=== PATIENT | female | born 1975 | race Caucasian/White ===

== ENCOUNTER → 2016-07-07 | Day surgery (SDC) | payer MEDICARE, MEDICAID ==
[2016-03-06 19:47] VITALS: BMI 40.2
[~2016-07-07] MED LIST: Clindamycin 900 mg/D5W 50 ml 900 MG/50 ML IVB IV ONE; FENTANYL 100 MCG/2 ML VIAL IV PRN; FENTANYL 100 MCG/2 ML VIAL ONE; FENTANYL 250 MCG/5 ML VIAL IV ONE; HEPARIN 500 UNITS/5 ML (100 UNITS/ML) SYR FLUSH ONE; HYDROmorphone 1 MG INJECTION IV PRN; HYDROmorphone 1 MG INJECTION ONE; LABETALOL 20 MG/4 ML SYRINGE IV PRN; LIDOCAINE 0.5% 50 ML SDV INF ONE; MEPERIDINE 25 MG/ML TUBEX IV PRN; MIDAZOLAM 2 MG/2 ML VIAL IV ONE; ONDANSETRON HCL 4 MG ODT TAB PO PRN; ONDANSETRON HCL 4 MG/2 ML VIAL IV PRN; OXYCODONE HCL 5 MG TABLET ONE; PROMETHAZINE 25 MG/ML VIAL IV PRN; hydrALAZINE 20 MG/ML VIAL IV PRN
--- NOTE | 2016-07-07 09:37 | SC.ANESPOS ---
Post-Anesthesia Note LOC: [facility] [facility] Calling Post-Anesthesia Assessment: Awake, Returned to Baseline, Hemodynamically Stable , Pain Control Adequate Phase I & II Recovery Complete: Yes Apparent Anesthesia Complication: No : N - Vital Signs Blood Pressure: 121/84 Pulse: 87 Resp Rate: 18 O2 Sat: 100 Temp: 97.3 F
--- NOTE | 2016-07-07 09:51 | HIM.ANES ---
Anesthesia Evaluation & Plan Diagnoses: CARPAL TUNNEL SYNDROME, LEFT UPPER LIMB (07/07/16) Consented Procedure: LEFT CARPAL TUNNEL RELEASE - Focused Review of Systems Cardiac History: Yes: Hx Hypertension, Hx Angina (NITROGLYCERIN PRN), Hx Heart Attack (2011), Hx Cardiac Catheterization (2012), Hx Pacemaker (2009, REPLACED 01/2016), Hx Heart Murmur (MITRAL VALVE PROLAPSE), Hx Afib/Aflutter (A-FIB), Hx Cardiac Disorders, Hx Abnormal Cholesterol/Hyperlipidemia, Hx Congestive Heart Failure, Hx Deep Vein Thrombosis (2007 BROKE OFF FROM LEG AND WENT TO BRAIN ) HEENT: No: Other HEENT Problems Gastrointestinal: No: Hx Gastroesophageal Reflux Disease, Hx Gastrointestinal Disorders, Hx Obstructive Bowel Neurological/Musculoskeletal: Yes: HX Cerebrovascular Accident (2009 RT SIDE CVA DUE TO DVT WITH LEFT SIDED WEAKNESS), Hx Transient Ischemic Attacks (TIA), Hx Migraine, Hx Back Pain, Hx Numbness, Tingling, Weakness in Arms & Legs, Hx Neurological Disorders Other Neurological Problems: NEUROPATHY-BILATERAL LEGS Psychological: Yes Hx Anxiety, Yes Hx Depression, Yes Hx Mental/Emotional Disorders HX Other Psyco/Soc Problems: INSOMNIA, PTSD Blood/Autoimmune: No: Hx AIDS, Hx Hepatitis (type) Smoking Status: Never smoker Hx Stress Test (date): Yes (11/10) Hx Chest Xray (date): Yes (01/24/2016 no pneumothorax) Pacemaker make/model/last interrogation: 05/2016 interrogation medtronic dual chamber Surgical History: Yes: Appendectomy (1998), Knee (RT KNEE LIGAMENT REPAIR 2002) Other Surgical History: 1998 PARTIAL HYSTERECTOMY 2009 TOTAL HYSTERECTOMY, D&C - Focused Physical Exam NPO since: 07/06/16 2100 Mallampati: Class IV Thyromental Distance: Greater than 3 Neck: Full Range of Motion Dental: Removable Dental Work Cardiovascular/Chest: Irregular Respiratory: Decreased breath sounds Any problems with anesthesia, including nausea and vomiting?: No Any relatives with a history of Malignant Hyperthermia?: No Beta Margarita given (if appropriate): N/A Does the patient have a history of Motion Sickness-: No Other: Allergies Allergy/AdvReac Type Severity Reaction Status Date / Time aspirin Allergy Anaphylaxis Verified 07/07/16 09:40 * cephalexin monohydrate Allergy Anaphylaxis Verified 07/06/16 14:19 [From Keflex] * ibuprofen Allergy Anaphylaxis Verified 07/06/16 14:19 * naproxen sodium [From Aleve] Allergy Anaphylaxis Verified 07/06/16 14:19 * nitrofurantoin Allergy Anaphylaxis Verified 07/06/16 14:19 [From Macrobid] * nitrofurantoin Allergy Anaphylaxis Verified 07/06/16 14:19 macrocrystalline * [From Macrobid] Home Medications Medication Instructions Recorded Last Taken Type Amitriptyline HCl [Elavil] 10 mg PO HS 10/18/15 07/04/16 22:00 History Hydralazine HCl 25 mg PO HS 10/18/15 07/05/16 22:00 History Nitroglycerin [Nitroquick] 0.4 mg SL [id number] PRN 10/18/15 03/05/16 History Ziprasidone HCl 20 mg PO BID 10/18/15 07/07/16 06:30 History Lamotrigine [Lamictal] 150 mg PO BID 03/06/16 07/07/16 07:00 History Atorvastatin Calcium [Lipitor] 20 mg PO DAILY 05/13/16 07/06/16 22:00 History Cyclobenzaprine HCl [Flexeril] 10 mg PO TID 05/13/16 07/06/16 22:00 History Diltiazem HCl [Cardizem] 60 mg PO DAILY 05/13/16 07/07/16 07:00 History Dipyridamole/Aspirin 200/25 1 cap PO BID 05/13/16 06/30/16 History [Aggrenox] Hydrocodone Bit/Acetaminophen 1 each PO BID PRN 05/13/16 07/06/16 22:00 History [[place] 10-325 Tablet] TOPIRAMATE (Anticonvulsant) 100 mg PO BID 05/13/16 07/07/16 07:00 History [Topamax] Zolpidem Tartrate [Ambien] 10 mg PO HS PRN 05/13/16 07/05/16 22:00 History Triamterene/Hydrochlorothiazid 1 each PO DAILY 05/15/16 07/07/16 07:00 History [Triamterene-Hctz 37.5-25 mg Tb] Height and Weight Patient's height 5 ft 2 in Patient's weight 290 lb BMI 40.2 Vital Signs Temperature 97.3 F L 07/07/16 09:37 Pulse Rate 87 07/07/16 09:37 Respiratory Rate 18 07/07/16 09:37 Blood Pressure 121/84 07/07/16 09:37 Pulse Oxygen Saturation 100 07/07/16 09:37 - Anesthetic Plan Anesthesia Type: MAC ASA Class: 4 -: I have examined this patient and reviewed the medical record. The patient has been assessed prior to anesthesia. Risks and benefits of anesthesia and anesthetic technique options have been discussed and all questions answered. The patient accepts the risk and desires me to proceed with the planned anesthetic.
--- NOTE | 2016-07-07 11:53 | HIMOPRPT ---
DATE OF PROCEDURE: 07/07/16 PREOPERATIVE DIAGNOSIS: Carpal tunnel syndrome, left hand. POSTOPERATIVE DIAGNOSIS: Carpal tunnel syndrome, left hand. OPERATION: Carpal tunnel release, left hand. SURGEON: Ranjeet Bynum MD. MANAGING CONSULTANT: KIRA Pitts ANESTHESIA: Bernardino block. DRAINS: None. COMPLICATIONS: None. BLOOD LOSS: None. DISPOSITION: Stable to recovery. PROCEDURE IN DETAIL: The patient was taken back to the surgical suite, where a forearm Bernardino block was placed on the left arm. The left hand and forearm was then prepped and draped in the standard sterile fashion and secured with a lead hand rader. A 3-cm longitudinal incision was made in the thenar crease of the palm. The incision was carried down sharply through the skin and subcutaneous tissues, which were undermined proximally across the wrist crease. An Alms self- retaining retractor was placed. A Crile right angle retractor was placed. The palmar fascia was incised in line with skin incision. The transverse carpal ligament was identified along with superficial palmar arch, which was protected. The contents of the carpal tunnel were dissected from the undersurface of the transverse carpal ligament with a hemostat and a Nieves elevator. The distal half of the transverse carpal ligament was released with a 15 blade. The median nerve was initially inspected, then the proximal half of the transverse carpal ligament was released with a carpal tunnel knife. A complete release was confirmed. There was no gross pathology noted within the carpal tunnel. The motor branch of the median nerve was identified and noted to take a transligamentous course radially. The wound was irrigated with sterile saline solution and the skin was closed with simple interrupted 4-0 Prolene sutures. A sterile bulky hand dressing was applied. The tourniquet was deflated. The patient was taken to the recovery room in stable condition. The patient tolerated the procedure well without immediate complications.
[2016-07-07 13:23] VITALS: TEMP 97.3
[2016-07-07 13:39] VITALS: PULSE 87
[2016-07-07 15:07] VITALS: BP 121/84
== END ==
LOC: SDC 08:57
PROVIDERS: ATTEND Orthopaedic Surgery
PROC: 01N50ZZ Release Median Nerve, Open Approach (ICD-10-PCS; principal; 2016-07-07 10:35)
DX: G56.02 Carpal tunnel syndrome, left upper limb (principal); I10 Essential (primary) hypertension; I50.9 Heart failure, unspecified; I25.2 Old myocardial infarction; I48.91 Unspecified atrial fibrillation; M32.9 Systemic lupus erythematosus, unspecified; E78.5 Hyperlipidemia, unspecified; E66.9 Obesity, unspecified; G43.909 Migraine, unspecified, not intractable, without status migrainosus; F41.9 Anxiety disorder, unspecified; F32.9 Major depressive disorder, single episode, unspecified; G47.00 Insomnia, unspecified; F43.10 Post-traumatic stress disorder, unspecified; Z86.73 Personal history of transient ischemic attack (TIA), and cerebral infarction without residual deficits; Z95.0 Presence of cardiac pacemaker; Z79.899 Other long term (current) drug therapy; Z68.43 Body mass index [BMI] 50.0-59.9, adult
CPT/HCPCS: 64721; 82962; A9270; J1170; J1642; J2550; J3010; J3490; J2250; S0077

== ENCOUNTER 2016-07-21 16:03 | Inpatient (IN) | payer MEDICARE, MEDICAID ==
--- NOTE | 2016-07-21 16:21 | DIRPT ---
CLINICAL DATA: Slurred speech. Stroke like symptoms. Code stroke. EXAM: CT HEAD WITHOUT CONTRAST TECHNIQUE: Contiguous axial images were obtained from the base of the skull through the vertex without intravenous contrast. COMPARISON: CT head without contrast 12/04/2015 FINDINGS: The basal ganglia are intact. The lentiform nucleus is normal. No acute or focal cortical lesions are present. Insert pass ventricles insert pass fluid The paranasal sinuses and mastoid air cells are clear. The calvarium is intact. No significant extracranial soft tissue lesion is present. The globes and orbits are within normal limits. IMPRESSION: Negative CT of the head. Electronically Signed By: Franki Holland M.D. On: 07/21/2016 16:19
--- NOTE | 2016-07-21 16:59 | EDPRACDOC ---
- General Stated Complaint: STROKE-LIKE SYMPTOMS Time Seen by Provider: 07/21/16 16:12 Information Source: Patient Mode of Arrival:: Car Allergies/Adverse Reactions: Allergies Allergy/AdvReac Type Severity Reaction Status Date / Time aspirin Allergy Anaphylaxis Verified 07/07/16 09:40 * cephalexin monohydrate Allergy Anaphylaxis Verified 07/06/16 14:19 [From Keflex] * ibuprofen Allergy Anaphylaxis Verified 07/06/16 14:19 * naproxen sodium [From Aleve] Allergy Anaphylaxis Verified 07/06/16 14:19 * nitrofurantoin Allergy Anaphylaxis Verified 07/06/16 14:19 [From Macrobid] * nitrofurantoin Allergy Anaphylaxis Verified 07/06/16 14:19 macrocrystalline * [From Wiren Boardbid] Home Medications: Ambulatory Orders Amitriptyline HCl [Elavil] 10 mg PO HS 10/18/15 Hydralazine HCl 25 mg PO HS 10/18/15 Nitroglycerin [Nitroquick] 0.4 mg SL [id number] PRN 10/18/15 Lamotrigine [Lamictal] 150 mg PO BID 03/06/16 Atorvastatin Calcium [Lipitor] 20 mg PO QHS 05/13/16 Cyclobenzaprine HCl [Flexeril] 10 mg PO TID 05/13/16 Diltiazem HCl [Cardizem] 60 mg PO DAILY 05/13/16 Hydrocodone Bit/Acetaminophen [[place] 10-325 Tablet] 0.5 tab PO BID PRN 05/13/16 Zolpidem Tartrate [Ambien] 10 mg PO HS PRN 05/13/16 Triamterene/Hydrochlorothiazid [Triamterene-Hctz 37.5-25 mg Tb] 1 tab PO DAILY 05/15/16 Apixaban [Eliquis] 5 mg PO BID 07/21/16 Levetiracetam [Keppra] 500 mg PO BID 07/21/16 - History of Present Illness Exact Onset of Symptoms: Known Onset: 1 HR [employer] Symptoms Started: Reports: Suddenly Symptoms: Reports: Difficulty walking, Other motor weakness, Facial droop Symptoms Description: Constant Symptom Severity: Reports: Unable to performs ADL's Weakness: Left: Arm, Leg, Face Associated Symptoms: Reports: Occasional Headache HPI: PT HAD A H/A YESTERDAY AND HER BP WAS HIGH. SHE SAID THAT SHE DEVELOPED LEFT SIDED FACIAL WEAKNESS AND LEFT ARM AND LEG WEAKNESS ABOUT 1 HR [employer]. THE PT SAID THAT SHE HAS HAD STROKES IN THE PAST. ED Past Medical History - Patient Medical History Neurological History: Reports: Cerebrovascular Accident (2009 RT SIDE CVA DUE TO DVT WITH LEFT SIDED WEAKNESS) Cardiac History: Reports: Coronary Artery Disease, Atrial Fibrillation, Hypertension, Congestive Heart Failure, Heart Attack (2011), Cardiac Catheterization (2012), Pacemaker (2008, REPLACED 01/2016), Valvular Heart Disease (MVR) GI/ History: Musculoskeletal History: Reports: Arthritis (OSTEO) Psychological History: Reports: Depression, Anxiety Systemic History: Reports: Cancer (OVARIAN) Surgical History: Reports: Hysterectomy, Cardiac Catheterization (2012), Other ( PORT PLACEMENT, PACEMAKER) - Family Medical History Reports: Hypertension (MOTHER), Cancer (GF COLON CA), Stroke (MOTHER), Cardiac Disorders (MOTHER, SISTER GF). Denies: Diabetes - Social Medical History Smoking Status: Never smoker ETOH: None Substance Abuse: None Lives In: Home EDM Review of Systems - Review of Systems ROS Negative Except as Marked: Yes All systems reviewed and were negative except as marked Neurological: Gait Difficulty, Weakness - Physical Exam Constitutional: Alert (Awake), Distress Oriented to: Time, Person, Place Last recorded Vital Signs: Last Vital Signs Temp Pulse 96 07/21/16 16:52 Resp 18 07/21/16 16:52 BP 151/99 07/21/16 16:52 Pulse Ox 99 07/21/16 16:52 Oxygen Pulse Oxygen Saturation 99 O2 Device Oxygen Flow Rate Fraction of Inspired Oxygen ( FIO2) - HEENT Head: Normal ( normocephalic) Eye Exam: Normal (PERRL, EOMI, Sclera white) Oropharynx: Normal (Pharynx:Moist without exudate,Gums-no swelling) ENT EAC: Normal TMJ: Normal Nose: No Symptoms Reported (septum midline) Neck: Normal (FROM, trachea at midline) - Respiratory/Cardiovascular Respiratory: Normal - CTA (BBS clear to auscultation without adventitious sounds ) Cardiovascular: Normal (RRR without murmur, gallop or rub) - GI Auscultation: Normal (NABS) Palpation: Normal (Soft,No rebound or guarding, non distended) Tenderness: Non tender Milan's Sign: Negative - Musculoskeletal Back: Normal (Non-Tender) Extremities: Normal (Normal tone, Pulses 2+ No cyanosis or edema, FROM) - Integumentary Skin: Normal, Warm, Dry Lymphatics: Normal (no adenopathy) - Neurologic Memory Impaired: Normal Motor Function: Abnormal (LEFT FACIAL DROOP, LEFT ARM AND LEG WEAKNESS) Cranial Nerve: Other (LEFT FACIAL DROOP) Cerebellar: Normal Mood Description: Normal Thought: Coherent Perception: Normal NIH Stroke Scale Initial Evaluation Level of Consciousness: Alert LOC- Question: Answers Both Correctly LOC Commands: Both Task Correctly Best Gaze: Normal Visual: No Visual Loss Facial Palsy: Complete Paralysis Motor Arm LEFT: Drift Motor Arm RIGHT: No Drift Motor Leg LEFT: Some Effort Against Ethel Motor Leg RIGHT: No Drift Limb Ataxia: Absent Sensory: Mild to Mod Sensory Loss Best Language: No Aphasia Dysarthria: Normal Extinction and Inattention: No Abnormality (Neglect) Score: 7out of42 - Action Has patient received an Antithrombotic in the last 24hrs?: No Was an Antithrombotic given in the ED?: No Antithrombotic Contraindicated: Other *free text (PT ON ELIQUIS) - Results 07/21/16 16:50 07/21/16 16:50 - EKG EKG #1 EKG Time: 16:49 -: Yes EKG interpreted by me Rate: bpm: 94 [place]: Normal Rhythm: NSR Block: None Hypertrophy: None ST: Normal Comparison: 03/06/16 - Diagnostic Imaging Chest Image interpreted by: Radiologist No acute disease. Head Image interpreted by: Radiologist Negative CT of the head. - Additional Information PT ABLE TO AMBULATE TO THE BATHROOM W/O ASSISTANCE - Departure Yes I personally saw and evaluated the patient. Disposition: Admit IP To This Hospital Condition: Fair Final Diagnosis: CVA - cerebrovascular accident due to cerebral artery occlusion Education/Counseling Given To: Patient Education/Counseling Given Regarding: Diagnosis, Treatment Referrals: Darlin Vegas PA [Primary Care Provider] - One Week Decision to Admit Time: 18:00 Decision to admit date: 07/21/16 Decision to admit: from ED - Physician Consulted Hospitalist Provider Called: Sudeep Batista
--- NOTE | 2016-07-21 17:02 | DIRPT ---
CLINICAL DATA: Headache, nausea, slurred speech and left-sided paralysis for 1 hour. Initial encounter. EXAM: PORTABLE CHEST 1 VIEW COMPARISON: Single view of the chest 03/06/2016. PA and lateral chest 01/25/2016. FINDINGS: Pacing device and Port-A-Cath remain in place. The lungs are clear. Heart size is normal. There is no pneumothorax or pleural effusion. Mild asymmetric elevation of the right hemidiaphragm relative to the left is unchanged. IMPRESSION: No acute disease. Electronically Signed By: Hubert Calderon M.D. On: 07/21/2016 16:59
[2016-07-21 17:08] VITALS: BMI 52.1
[2016-07-21 17:09] LABS: AUTOMATED BASOPHIL 1.3 % (0-2); AUTOMATED EOSINOPHIL 1.2 % (0-5); AUTOMATED NEUTROPHIL 48.5 % (45-76); MPV 7.9 fL (7.4-10.4)
[2016-07-21 17:15] LABS: LEUKOCYTES/URINE NEG (NEGATIVE); NITRITE/URINE NEG (NEGATIVE); RBC/URINE 0-2 (0-5); URINE OCCULT BLOOD NEG (NEG/TRACE); WBC/URINE 0-2 (0-5)
[2016-07-21 17:22] LABS: BLOOD UREA NITROGEN 6 MG/DL (7-17); CALC CORRECTED 9.1 MG/DL (8.4-10.2); CALCULATED OSMOLALITY 265 MOs/Kg (270-290); CHLORIDE 105 mEq/L (98-107); GLUCOSE 85 MG/DL (70-99); SODIUM LEVEL 139 mEq/L (137-146); TOTAL PROTEIN 7.2 G/DL (6.3-8.2)
[2016-07-21 17:36] LABS: PT-INR 1.1
[2016-07-21] MEDS ORDERED: ONDANSETRON HCL 4 MG/2 ML VIAL IV ONE (17:37)
[2016-07-21] MEDS ORDERED: MORPHINE 4 MG/ML INJECTION IV ONE ×2 (17:37→20:14)
[2016-07-21] MEDS ORDERED: NITROGLYCERINE 0.4 MG TAB SL PRN (18:30)
[2016-07-21] MEDS ORDERED: ACETAMINOPHEN 325 MG/TAB TABLET PO PRN (18:31)
[2016-07-21] MEDS ORDERED: ONDANSETRON HCL 4 MG/2 ML VIAL IV PRN (18:31)
--- NOTE | 2016-07-21 18:35 | HISTPHYS ---
- Chief Complaint Left facial droop, left-sided weakness - History of Present Illness This is a pleasant 40-year-old female with a history of prior CVA who was being admitted to the [facility] due to concerns for recurrent cerebrovascular accident. The patient had a CVA several years ago, consisting of left arm and leg tingling and weakness as well as left facial droop, this thankfully resolved completely and the patient has since then been on Eliquis anticoagulation for her history of stroke, in addition to her history of atrial fibrillation. She tells me that 2 weeks ago, her Eliquis was stopped briefly for a left carpal tunnel surgery which went very well. She was in her usual state of health until yesterday when she noticed that her blood pressure was quite high but she was otherwise normal. The this afternoon, about 1 hour prior to her presentation to the emergency department, she developed a right- sided headache, followed by left 5th sided facial tingling and droop, and then left arm and leg numbness and tingling with weakness, she also noticed that she was stumbling when she tried to walk. She denies any vision changes, seizures, nausea, vomiting, fevers, chills, chest pain, abdominal pain, diarrhea or nausea , sick contacts or recent travel. No other changes to her medications. No therapies tried prior to arrival. Patient was not given tPA as she is already on Eliquis anticoagulation. - Medical History Cardiac History: Reports: Coronary Artery Disease, Atrial Fibrillation, Hypertension, Congestive Heart Failure, Heart Attack (2011), Cardiac Catheterization (2012), Pacemaker (2008, REPLACED 01/2016), Valvular Heart Disease (MVR) GI/ History: Musculoskeletal History: Reports: Arthritis (OSTEO) Systemic History: Reports: Cancer (OVARIAN) Neurological History: Reports: Cerebrovascular Accident (2009 RT SIDE CVA DUE TO DVT WITH LEFT SIDED WEAKNESS) Psychological History: Reports: Depression, Anxiety - Surgical History Reports: Hysterectomy, Cardiac Catheterization (2012), Other (PORT PLACEMENT, PACEMAKER) - Medictions/Allergies Allergies aspirin Allergy (Verified 07/07/16 09:40) Anaphylaxis* cephalexin monohydrate [From Keflex] Allergy (Verified 07/06/16 14:19) Anaphylaxis* ibuprofen Allergy (Verified 07/06/16 14:19) Anaphylaxis* naproxen sodium [From Aleve] Allergy (Verified 07/06/16 14:19) Anaphylaxis* nitrofurantoin [From Macrobid] Allergy (Verified 07/06/16 14:19) Anaphylaxis* nitrofurantoin macrocrystalline [From Macrobid] Allergy (Verified 07/06/16 14:19 ) Anaphylaxis* Home Medications Amitriptyline HCl [Elavil] 10 mg PO HS 10/18/15 Hydralazine HCl 25 mg PO HS 10/18/15 Nitroglycerin [Nitroquick] 0.4 mg SL Q5MX3 PRN 10/18/15 Lamotrigine [Lamictal] 150 mg PO BID 03/06/16 Atorvastatin Calcium [Lipitor] 20 mg PO QHS 05/13/16 Cyclobenzaprine HCl [Flexeril] 10 mg PO TID 05/13/16 Diltiazem HCl [Cardizem] 60 mg PO DAILY 05/13/16 Hydrocodone Bit/Acetaminophen [[place] 10-325 Tablet] 0.5 tab PO BID PRN 05/13/16 Zolpidem Tartrate [Ambien] 10 mg PO HS PRN 05/13/16 Triamterene/Hydrochlorothiazid [Triamterene-Hctz 37.5-25 mg Tb] 1 tab PO DAILY 05/15/16 Apixaban [Eliquis] 5 mg PO BID 07/21/16 Levetiracetam [Keppra] 500 mg PO BID 07/21/16 - Family History Reports: Hypertension (MOTHER), Cancer (GF COLON CA), Stroke (MOTHER), Cardiac Disorders (MOTHER, SISTER GF). Denies: Diabetes - Social History Smoking Status: Never smoker - Review of Systems Yes All systems reviewed and were negative except as marked Constitutional: No Symptoms Reported (No fever, chills, wt loss/gain, fatigue) Eyes: No Symptoms Reported (No blurry vision, visual changes) Respiratory: No Symptoms Reported (No cough,wheezing or shortness of breath) Cardiovascular: No Symptoms Reported (No Chest pain, palpitations) Gastrointestinal: No Symptoms Reported (No abdominal pain, nausea, vomiting, diarrhea or constipation) Genitourinary: No Symptoms Reported (No dysuria) Musculoskeletal:: No Symptoms Reported (No headache, dizzness, seizures or focal weakness) Integumentary: No Symptoms Reported (No rashes or lesions) Hematologic: No Symptoms Reported (No bleeding or easy bruising) Endocrine: No Symptoms Reported (No polyuria) - Physical Exam Vital Signs: Initial Vitals Temperature 98.2 F 07/21/16 16:15 Pulse Rate 98 07/21/16 16:15 Respiratory Rate 22 07/21/16 16:15 Blood Pressure 139/75 07/21/16 16:15 Pulse Oxygen Saturation 98 07/21/16 16:15 Constitutional: No apparent distress, Alert Oriented to: Time, Person, Place Exam: She is speaking relatively clearly, but she does have a very slight slur to her speech. - HEENT Head: Normal (normocephalic,atraumatic, trachea midline) Eye: Normal (EOMI, Sclera white) Oropharynx: Normal (moist) Nose: No Symptoms Reported (without discharge or bleeding) She clearly has a left facial droop. No ptosis. Respiratory: Normal - CTA (Clear to auscultation bilaterally, no wheezing,rales or rhonchi. No use of accessory muscles) Cardiovascular: Normal (RRR, no murmurs, rubs or gallops) - GI Palpation: Normal (soft, non distended and nontender) - Musculoskeletal Extremities: Normal (normal tone, no cyanosis or edema) - Integumentary Skin: Normal (no rashes or lesions) - Neurologic Memory Impaired: Normal Cranial Nerve: Deficit (Left facial droop) Mood Description: Normal Thought: Coherent Perception: Normal She has 1/5 strength in her left arm and leg entirely. She also has numbness of the entire left side of her body. - Focused CV Perfusion Exam Vital Signs: Last Vital Signs Temp 98.2 F 07/21/16 16:15 Pulse 92 07/21/16 16:59 Resp 18 07/21/16 16:59 BP 144/77 07/21/16 16:59 Pulse Ox 98 07/21/16 16:59 - Lab Results Laboratory Tests 07/21/16 07/21/16 07/21/16 16:50 16:50 16:50 WBC 3.9 Hgb 13.1 Hct 37.6 INR 1.1 Potassium 3.6 BUN 6 L Creatinine 0.60 Troponin I < 0.01 - Diagnostic Findings Chest x-ray and CT scan of the head her without any acute process apparent. - Assessment (1) CVA - cerebrovascular accident due to cerebral artery occlusion I63.50 - CEREB INFRC DUE TO UNSP OCCLS OR STENOS OF UNSP CEREB ARTERY Acute Patient is being admitted to the hospital under inpatient status due to suspected CVA. Her symptoms are not resolving. She is not a tPA candidate due to being on full anticoagulation with Eliquis. She will be admitted to telemetry floor, permissive hypertension will be allowed for the 1st [address] scan of the head does not show any lesion, she will have carotid Dopplers, 2D echo of the heart and will need CT angiogram of the head as she cannot have an MRI due to her pacemaker. Neurology service will be consulted in the morning. Continue medications including home statin, and therapeutic Eliquis. (2) Left-sided weakness M62.81 - MUSCLE WEAKNESS (GENERALIZED) Acute Due to likely CVA. Treated as above. (3) Insomnia G47.00 - INSOMNIA, UNSPECIFIED Acute Qualifiers: Insomnia type: I Continue home p.r.n. medications. (4) Seizure prophylaxis Z41.8 - ENCNTR FOR OTH PROC FOR PURPOSE OTH THAN [facility] Acute Continue home Keppra, will convert to IV dosing while she is NPO. (5) Hyperlipidemia E78.5 - HYPERLIPIDEMIA, UNSPECIFIED Acute Qualifiers: Hyperlipidemia type: H Continue statin once she is cleared for diet. Check fasting lipids in the morning. (6) History of CVA (cerebrovascular accident) Z86.73 - PRSNL HX OF TIA (TIA), AND CEREB INFRC W/O RESID DEFICITS Acute She does have a history of prior stroke, has been on Eliquis since this time and is followed as an outpatient by the Neu[facility]. (7) History of atrial fibrillation Z86.79 - PERSONAL HISTORY OF OTHER DISEASES OF THE CIRCULATORY SYSTEM Acute Continue diltiazem and Eliquis. - Plan In summary this patient is acutely and critically ill. The patient requires treatment of vital organ failure and measures to prevent further life- threatening deterioration of the above conditions. I personally reviewed and ordered lab testing, as well as imaging. I reviewed old medical records from previous hospitalizations as available, and spent the time mentioned below in critical care of this patient including counseling and coordination of care. Total Time: 80
[2016-07-21] MEDS ORDERED: Pharmacy Review for Metformin - IV Contrast Given SCH (20:00)
[2016-07-21] MEDS ORDERED: hydrALAZINE 25 MG TAB PO SCH (21:00)
[2016-07-21] MEDS ORDERED: LEVETIRACETAM 250 MG TAB PO SCH (21:00)
[2016-07-21] MEDS ORDERED: Vaccine Screening Complete SCH (22:00)
[2016-07-21] MEDS: APIXABAN 5 MG TABLET PO SCH (22:26)
[2016-07-21] MEDS: AMITRIPTYLINE 10 MG TAB PO SCH (22:26)
[2016-07-21] MEDS: CYCLOBENZAPRINE 10 MG TAB PO SCH (22:27)
[2016-07-21] MEDS: ATORVASTATIN 20 MG TAB PO SCH (22:27)
[2016-07-21] MEDS: LAMOTRIGINE 100 MG TAB PO SCH (22:27)
[2016-07-22] MEDS: MORPHINE 2 MG/ML INJECTION IV PRN ×5 (00:42→21:06)
[2016-07-22] MEDS: CYCLOBENZAPRINE 10 MG TAB PO SCH ×3 (04:12→21:05)
[2016-07-22 07:30] LABS: LDL (calc.) 75.6 MG/DL (<100); VLDL (calc.) 16.4 MG/DL (5-40)
[2016-07-22] MEDS ORDERED: FLU VACCINE (Afluria) 0.5 ML DOSE IM ONE (08:00)
--- NOTE | 2016-07-22 08:00 | DIRPT ---
CLINICAL DATA: Slurred speech, hypertension, visual disturbance and history of myocardial infarction. EXAM: BILATERAL CAROTID DUPLEX ULTRASOUND TECHNIQUE: Chanel scale imaging, color Doppler and duplex ultrasound were performed of bilateral carotid and vertebral arteries in the neck. COMPARISON: None. FINDINGS: Criteria: Quantification of carotid stenosis is based on velocity parameters that correlate the residual internal carotid diameter with NASCET-based stenosis levels, using the diameter of the distal internal carotid lumen as the denominator for stenosis measurement. The following velocity measurements were obtained: RIGHT ICA: 100/59 cm/sec CCA: 77/28 cm/sec SYSTOLIC ICA/CCA RATIO: 1.3 DIASTOLIC ICA/CCA RATIO: 1.9 ECA: 79 cm/sec LEFT ICA: 87/44 cm/sec CCA: 85/29 cm/sec SYSTOLIC ICA/CCA RATIO: 1.0 DIASTOLIC ICA/CCA RATIO: 1.5 ECA: 77 cm/sec RIGHT CAROTID ARTERY: No focal plaque is identified. Velocities and waveforms are normal. There is no evidence of right carotid stenosis. RIGHT VERTEBRAL ARTERY: Antegrade flow with normal waveform and velocity. LEFT CAROTID ARTERY: No focal plaque is identified. Velocities and waveforms are normal. There is no evidence of left carotid stenosis. LEFT VERTEBRAL ARTERY: Antegrade flow with normal waveform and velocity. IMPRESSION: Normal carotid duplex ultrasound demonstrating no evidence of carotid stenosis or focal plaque. Electronically Signed By: Yao Ybarra M.D. On: 07/22/2016 07:57
[2016-07-22] MEDS ORDERED: TRIAMTERENE PO SCH (09:00)
[2016-07-22] MEDS ORDERED: HCTZ 25 MG PO SCH (09:00)
[2016-07-22] MEDS: APIXABAN 5 MG TABLET PO SCH ×2 (10:24→20:56)
[2016-07-22] MEDS: DILTIAZEM 60 MG TAB PO SCH (10:24)
[2016-07-22] MEDS: LAMOTRIGINE 100 MG TAB PO SCH ×2 (10:25→20:56)
[2016-07-22] MEDS: HYDROCODONE 5 MG/ACETAMIN 325 MG TAB PO PRN (13:09)
--- NOTE | 2016-07-22 16:00 | CAPUECHO ---
INDICATION: ISCHEMIC STROKE EVAL HEIGHT: 157.5 cm (5 ft 2.0 in) WEIGHT: 129.3 kg (285.0 lbs) BP: 123/56 BSA: 2.01884 m MEASUREMENTS 2D RVIDd: 2.7 cm EF Biplane: 49.77 % LAESV MOD A4C: 41.5 ml LAESV MOD A2C: 45.7 ml LAESV Index (A-L): 21.11 ml/m M-MODE IVSd: 1.2 cm LVIDd: 4.6 cm LVPWd: 1.2 cm LVIDs: 3.3 cm EF(Teich): 54 % Ao Diam: 3.5 cm LA Diam: 3.5 cm DOPPLER MV E Mehrdad: 0.86 m/s MV A Mehrdad: 0.84 m/s MV PHT: 49.27 ms MVA By PHT: 4.47 cm LVOT Vmax: 1.01 m/s AV Vmax: 1.29 m/s FINDINGS ------- Procedure:2D images, m-mode, color and spectral Doppler were obtained and reviewed. ECG rhythm:Sinus rhythm. Study quality:This was a technically adequate study. This was a technically difficult study with s uboptimal apical views. Left Ventricle:LV size, wall thickness and systolic function are normal, with an EF greater than 55% . There is mild concentric left ventricular hypertrophy. Overall left ventricular systolic funct ion is normal with, an EF between 60 - 65 %. The diastolic filling pattern is normal for the age o f the patient. Right Ventricle:The right ventricle is normal in size and function. Left Atrium:The left atrium is normal in size. Right Atrium:The right atrium is normal in size and function. Aortic Valve:The aortic valve is trileaflet, and appears structurally normal. No aortic stenosis or regurgitation. Mitral Valve:Normal appearing mitral valve. There is trace mitral regurgitation. Tricuspid Valve:The tricuspid valve appears structurally normal. Trace tricuspid regurgitation pre sent. Pulmonic Valve:The pulmonic valve is normal. There is no pulmonic regurgitation present. Aorta:The aortic root, ascending aorta and aortic arch appear normal. IVC:Normal inferior vena cava with normal inspiratory collapse. Pericardium:There is no pericardial effusion. CONCLUSIONS 1. There is mild concentric left ventricular hypertrophy. 2. Overall left ventricular systolic function is normal with, an EF between 60 - 65 %. 3. The diastolic filling pattern is normal for the age of the patient. 4. The left atrium is normal in size. 5. There is trace mitral regurgitation. 6. Trace tricuspid regurgitation present. Electronically Signed By: Rober Woods MD -- Electronically Signed On: 15:53:24
--- NOTE | 2016-07-22 16:59 | GENMEDPROG ---
Subjective Note: Patient in bed responsive follows commands. Slurring of the speech noted. Left -sided symptoms improved but not resolved. Denies any difficulty swallowing Notes Reviewed: Yes Events from last night noted and discussed with Clinical Staff Current Medication List: Reviewed Currently: Reports: Cough, Reflux Sx DVT Prophylaxis: Yes - Physical Examination Vital Signs and I&O: Last Vital Signs Temp 98.0 F 07/22/16 12:00 Pulse 87 07/22/16 14:30 Resp 18 07/22/16 12:00 BP 114/66 07/22/16 12:00 Pulse Ox 98 07/22/16 12:00 Oxygen Pulse Oxygen Saturation 98 O2 Device Room Air Oxygen Flow Rate Fraction of Inspired Oxygen ( FIO2) Intake & Output 07/19/16 07/20/16 07/21/16 07/22/16 23:59 23:59 23:59 23:59 Intake Total 10 495 Output Total 800 Balance 10 -305 Patient's weight 131.451 kg 131.088 kg General: Alert, Oriented x3, Cooperative, No acute distress HEENT: Normal, PERRLA, EOMI, Anicteric Sclera Neck: Non-tender, Limited range of motion Lymphatics: Normal Respiratory: Normal - CTA (Clear to auscultation bilaterally, no wheezing,rales or rhonchi. No use of accessory muscles) Cardiovascular: Regular rate, Normal S1, Normal S2, Murmurs GI: Normal bowel sounds, Soft, Non tender, No hepatospenomegaly, No masses, Obese Extremities/Musculoskeletal: Edema, DJD Skin: Warm,Dry and Intact, No rashes, No breakdown, No significant lesion Neurological: Cranial nerves 3-12 NL, Other (Left-sided weakness noted) Psych/Mental Status: Anxious Lab/DI/Studies Reviewed: Patient Name: VINCENZO TAYLOR LOC: [facility] : 1975 AGE: 40 Order Date:07/21/16 Date of Service: Report # [id number] Ord Physician: Sudeep Batista MD Exam # [id number] Emergency Physician: Terrie Zhu MD Exam(s): [id number] US/US CAROTID DUPLEX-BILAT CLINICAL DATA: Slurred speech, hypertension, visual disturbance and history of myocardial infarction. EXAM: BILATERAL CAROTID DUPLEX ULTRASOUND TECHNIQUE: Chanel scale imaging, color Doppler and duplex ultrasound were performed of bilateral carotid and vertebral arteries in the neck. COMPARISON: None. FINDINGS: Criteria: Quantification of carotid stenosis is based on velocity parameters that correlate the residual internal carotid diameter with NASCET-based stenosis levels, using the diameter of the distal internal carotid lumen as the denominator for stenosis measurement. The following velocity measurements were obtained: RIGHT ICA: 100/59 cm/sec CCA: 77/28 cm/sec SYSTOLIC ICA/CCA RATIO: 1.3 DIASTOLIC ICA/CCA RATIO: 1.9 ECA: 79 cm/sec LEFT ICA: 87/44 cm/sec CCA: 85/29 cm/sec SYSTOLIC ICA/CCA RATIO: 1.0 DIASTOLIC ICA/CCA RATIO: 1.5 ECA: 77 cm/sec RIGHT CAROTID ARTERY: No focal plaque is identified. Velocities and waveforms are normal. There is no evidence of right carotid stenosis. RIGHT VERTEBRAL ARTERY: Antegrade flow with normal waveform and velocity. LEFT CAROTID ARTERY: No focal plaque is identified. Velocities and waveforms are normal. There is no evidence of left carotid stenosis. LEFT VERTEBRAL ARTERY: Antegrade flow with normal waveform and velocity. IMPRESSION: Normal carotid duplex ultrasound demonstrating no evidence of carotid stenosis or focal plaque. Electronically Signed By: Yao Ybarra M.D. On: 07/22/2016 07:57 Electronically Signed By: Yao Ybarra MD Electronically Signed Date/Time: 800 Dictate Date/Time: 07/22/16 0749 Technologist: Rosana Gonzales Transcribed By: Js Transcribed Date/Time: 07/22/16 0757 - Assessment (1) CVA - cerebrovascular accident due to cerebral artery occlusion Acute I63.50 - CEREB INFRC DUE TO UNSP OCCLS OR STENOS OF UNSP CEREB ARTERY Comment/Plan: Continue liquids consult Neurology. Carotid Dopplers showed no stenosis. Will repeat CT in 48 hours (2) History of atrial fibrillation Acute Z86.79 - PERSONAL HISTORY OF OTHER DISEASES OF THE CIRCULATORY SYSTEM Comment/Plan: Continue diltiazem and Eliquis. (3) Hyperlipidemia Acute E78.5 - HYPERLIPIDEMIA, UNSPECIFIED Qualifiers: Hyperlipidemia type: mixed hyperlipidemia Qualified Code(s): E78.2 - Mixed hyperlipidemia Comment/Plan: Continue statin once she is cleared for diet. Check fasting lipids in the morning. (4) HTN (hypertension) Acute I10 - ESSENTIAL (PRIMARY) HYPERTENSION Qualifiers: Hypertension type: essential hypertension Qualified Code(s): I10 - Essential (primary) hypertension Comment/Plan: Keep SBP above 140 (5) Neuropathy Acute G62.9 - POLYNEUROPATHY, UNSPECIFIED Case Care Discussed with: Patient, Consultants, Family, Nursing Staff, Other Education/Counseling Given To: Patient Education/Counseling Given Regarding: Diagnosis, Treatment, Prognosis, Follow Up Total Time: 50 min . Critical Care: No Code: 82616 (12+)
--- NOTE | 2016-07-22 19:20 | PCM.NEUCO ---
Consultation Date: 07/22/16 Requesting Physician: Jonas Elzialde Consulting Doctor: Massiel Zelaya Reason For Consult: Stroke/TIA 40 y.o. female, known to me with PMH significant for CVA, HTN, CAD, and PAF admitted last night with left sided weakness. Patient reports that while at the orthopedic MD's office on 07/20 her systolic BP was 180. She checked her BP later that day and it remained high. Yesterday afternoon she had sudden onset of right sided headache, left sided weakness, and slurred speech. Patient started Eliquis due to h/o PAF about 2 weeks ago after having a left CTR. In the ED patient had a head CT that was negative for any acute intracranial findings. She is unable to have a MRI due to pacemaker. CD done today did not show any ICA stenosis. Echo report is pending. - Past Medical and Surgical History Cardiac History: Reports: Coronary Artery Disease, Atrial Fibrillation (PAF), Hypertension, Congestive Heart Failure, Heart Attack (2011), Cardiac Catheterization (2012), Pacemaker (2008, REPLACED 01/2016), Valvular Heart Disease (MVR) GI/ History: Systemic History: Reports: Cancer (OVARIAN) Musculoskeletal History: Reports: Arthritis (OSTEO) Psychological History: Reports: Depression, Anxiety, Bipolar Disorder. Denies: Alcoholism, Substance Use Disorder Neurological History: Reports: Cerebrovascular Accident (2009 RT SIDE CVA DUE TO DVT WITH LEFT SIDED WEAKNESS), Migraine Past Surgical History: Reports: Hysterectomy, Cardiac Catheterization (2012), Other (PORT PLACEMENT, PACEMAKER) Allergies aspirin Allergy (Verified 07/07/16 09:40) Anaphylaxis* cephalexin monohydrate [From Keflex] Allergy (Verified 07/06/16 14:19) Anaphylaxis* ibuprofen Allergy (Verified 07/06/16 14:19) Anaphylaxis* naproxen sodium [From Aleve] Allergy (Verified 07/06/16 14:19) Anaphylaxis* nitrofurantoin [From Macrobid] Allergy (Verified 07/06/16 14:19) Anaphylaxis* nitrofurantoin macrocrystalline [From Macrobid] Allergy (Verified 07/06/16 14:19 ) Anaphylaxis* Home Medications Amitriptyline HCl [Elavil] 10 mg PO HS 10/18/15 Hydralazine HCl 25 mg PO HS 10/18/15 Nitroglycerin [Nitroquick] 0.4 mg SL [id number] PRN 10/18/15 Lamotrigine [Lamictal] 150 mg PO BID 03/06/16 Atorvastatin Calcium [Lipitor] 20 mg PO QHS 05/13/16 Cyclobenzaprine HCl [Flexeril] 10 mg PO TID 05/13/16 Diltiazem HCl [Cardizem] 60 mg PO DAILY 05/13/16 Hydrocodone Bit/Acetaminophen [Bradley 10-325 Tablet] 0.5 tab PO BID PRN 05/13/16 Zolpidem Tartrate [Ambien] 10 mg PO HS PRN 05/13/16 Triamterene/Hydrochlorothiazid [Triamterene-Hctz 37.5-25 mg Tb] 1 tab PO DAILY 05/15/16 Apixaban [Eliquis] 5 mg PO BID 07/21/16 Butalb/Acetaminophen/Caffeine [Fioricet Tablet (50mg/325mg/40mg)] 1 - 2 tab PO Q4H PRN 07/21/16 Levetiracetam [Keppra] 500 mg PO BID 07/21/16 - Social History Travel Outside of [place] in the Last 3 Months?: No Lives: With Family Smoking Status: Never smoker Social History: Denies: Alcohol Use, Substance Use Disorder - Family History Reports: Hypertension (MOTHER), Diabetes (MOTHER IS HYPOGLYCEMIC), Cancer (GF COLON CA), Stroke (MOTHER, SISTER), Cardiac Disorders (MOTHER, SISTER) - Review of Systems Constitutional: Weakness Eyes: No Symptoms Reported (Denies visual changes) Throat/Neck: No Symptoms Reported (Denies neck pain) Cardiovascular: No Symptoms Reported (Denies CP) Genitourinary: No Symptoms Reported (Denies urinary complaints) Neurological: Gait Difficulty, Headache, Numbness, Weakness Musculoskeletal:: Chronic low back pain Integumentary: No Symptoms Reported (Denies rash) Hematologic: No Symptoms Reported (Denies easy bruising) Psychiatric: No Symptoms Reported (Denies insomnia) - Physical Exam Vital Signs: Initial Vitals Temperature 98.2 F 07/21/16 16:15 Pulse Rate 98 07/21/16 16:15 Respiratory Rate 22 07/21/16 16:15 Blood Pressure 139/75 07/21/16 16:15 Pulse Oxygen Saturation 98 07/21/16 16:15 Selected Entries 07/22/16 07/22/16 16:00 18:20 Temperature 97.8 F Pulse Rate 93 Respiratory 20 Rate Blood Pressure 106/53 L Pulse Oxygen 96 Saturation Constitutional: Alert, Well nourished Oriented to: Time, Person, Place - HEENT Head: Normal - Integumentary Skin: Normal - Mental Status Orientation: Time, Person, Place Speech: Clear Coginitive: Normal Motor Function: Other (Strength 5/5 in RUE/RLE; 3-/5 in LUE and 2/5 in LLE) Affect: Normal Thought: Coherent Perception: Normal - Sensory Sensory: Other (Intact to light touch and pain in RUE/RLE; Absent in LUE/LLE) - Reflex Babinski Reflex Response: Absent Bilateral Reflexes: Absent 0: Left Patellar (trace), Right Patellar (trace), Left Achilles (trace), Right Achilles (trace), Diminished 1+: Right Bicep, Left Bicep , Left Tricep, Right Tricep, Left Brachioradialis, Right Brachioradialis - Coordination Finger to Nose Test: Normal with RUE; Unable to do with LUE Hand Tapping Test: Normal in RUE; Unable to do with LUE - Other Exam Other Exam Findings: CN II-XII: Pupil size equal and reactive. Fundi not visualized. VF full to confrontation. EOMI with no nystagmus. Hearing appears normal. Left lower facial droop. Decreased to light touch in left side of face, intact in right side of face. Normal right shoulder shrug. Unable to shrug left shoulder. Mild deviation of tongue to left. KRISHNA normal with right hand. Unable to do KRISHNA with left hand. - Lab Results Laboratory Tests 07/21/16 07/21/16 07/21/16 16:50 16:50 16:50 WBC 3.9 Hgb 13.1 Hct 37.6 MCV 85 PT 11.1 INR 1.1 APTT 141.0 H* Sodium 139 Potassium 3.6 BUN 6 L Creatinine 0.60 Glucose 85 Triglycerides Cholesterol LDL Cholesterol, Calc VLDL Cholesterol, Calc HDL Cholesterol TSH 07/21/16 07/22/16 16:50 04:45 WBC Hgb Hct MCV PT INR APTT Sodium Potassium BUN Creatinine Glucose Triglycerides 82 Cholesterol 140 LDL Cholesterol, Calc 75.6 VLDL Cholesterol, Calc 16.4 HDL Cholesterol 48.0 TSH 2.24 - Diagnostic Findings CT/CT HEAD W/O (CODESTROKE) CLINICAL DATA: Slurred speech. Stroke like symptoms. Code stroke. EXAM: CT HEAD WITHOUT CONTRAST COMPARISON: CT head without contrast 12/04/2015 FINDINGS: The basal ganglia are intact. The lentiform nucleus is normal. No acute or focal cortical lesions are present. Insert pass ventricles insert pass fluid The paranasal sinuses and mastoid air cells are clear. The calvarium is intact. No significant extracranial soft tissue lesion is present. The globes and orbits are within normal limits. IMPRESSION: Negative CT of the head. ECHOCARDIOGRAM INDICATION: ISCHEMIC STROKE EVAL FINDINGS ------- Procedure:2D images, m-mode, color and spectral Doppler were obtained and reviewed. ECG rhythm:Sinus rhythm. Study quality:This was a technically adequate study. This was a technically difficult study with suboptimal apical views. Left Ventricle:LV size, wall thickness and systolic function are normal, with an EF greater than 55%. There is mild concentric left ventricular hypertrophy. Overall left ventricular systolic function is normal with, an EF between 60 - 65 %. The diastolic filling pattern is normal for the age of the patient. Right Ventricle:The right ventricle is normal in size and function. Left Atrium:The left atrium is normal in size. Right Atrium:The right atrium is normal in size and function. Aortic Valve:The aortic valve is trileaflet, and appears structurally normal. No aortic stenosis or regurgitation. Mitral Valve:Normal appearing mitral valve. There is trace mitral regurgitation. Tricuspid Valve:The tricuspid valve appears structurally normal. Trace tricuspid regurgitation present. Pulmonic Valve:The pulmonic valve is normal. There is no pulmonic regurgitation present. Aorta:The aortic root, ascending aorta and aortic arch appear normal. IVC:Normal inferior vena cava with normal inspiratory collapse. Pericardium:There is no pericardial effusion. CONCLUSIONS 1. There is mild concentric left ventricular hypertrophy. 2. Overall left ventricular systolic function is normal with, an EF between 60 - 65 %. 3. The diastolic filling pattern is normal for the age of the patient. 4. The left atrium is normal in size. 5. There is trace mitral regurgitation. 6. Trace tricuspid regurgitation present. EXAM: BILATERAL CAROTID DUPLEX ULTRASOUND IMPRESSION: Normal carotid duplex ultrasound demonstrating no evidence of carotid stenosis or focal plaque. - Assessment/Plan (1) CVA - cerebrovascular accident due to cerebral artery occlusion I63.50 - CEREB INFRC DUE TO UNSP OCCLS OR STENOS OF UNSP CEREB ARTERY Acute Present on Admission: Yes Comment: Patient with left sided weakness and numbness due to acute CVA. Initial head CT negative but will be repeated tomorrow. BPs have been running on the low side today. Ideally would like to see systolic BP at least in the 130s due to stroke. Will decrease dose of Maxzide. Patient already on anticoagulant and statin. Continue OT/PT/ST. Patient plans on having for her rehab after d/c. Case Care Discussed with: Patient, Nursing Staff, Other (Dr. Qureshi, neurologist nutrition worker. )
[2016-07-22] MEDS: ATORVASTATIN 20 MG TAB PO SCH (20:56)
[2016-07-22] MEDS: AMITRIPTYLINE 10 MG TAB PO SCH (20:56)
[2016-07-22] MEDS: ZOLPIDEM TARTRATE 5 MG TAB PO PRN (21:12)
[2016-07-22 21:14] LABS: PARTIAL THROMB. TIME 27.6 SEC (22-35); PT-INR 1.1
[2016-07-23] MEDS: CYCLOBENZAPRINE 10 MG TAB PO SCH ×3 (05:38→21:09)
[2016-07-23] MEDS: HYDROCODONE 5 MG/ACETAMIN 325 MG TAB PO PRN ×2 (05:42→17:57)
[2016-07-23] MEDS ORDERED: Pharmacy Review for Metformin - IV Contrast Given SCH (08:00)
[2016-07-23] MEDS: NS 1,000 ML IV SCH (08:27)
[2016-07-23] MEDS: LAMOTRIGINE 100 MG TAB PO SCH ×2 (08:28→21:10)
[2016-07-23] MEDS: APIXABAN 5 MG TABLET PO SCH ×2 (08:29→21:09)
[2016-07-23] MEDS: DILTIAZEM 60 MG TAB PO SCH (08:29)
--- NOTE | 2016-07-23 08:29 | DIRPT ---
CLINICAL DATA: Follow up stroke. Left-sided weakness involving the face, arm, and leg. Prior stroke. EXAM: CT HEAD WITHOUT AND WITH CONTRAST TECHNIQUE: Contiguous axial images were obtained from the base of the skull through the vertex without and with intravenous contrast CONTRAST: 100 mL Isovue 370 COMPARISON: 07/21/[address] FINDINGS: There is no evidence of acute cortical infarct, intracranial hemorrhage, mass, midline shift, or extra-axial fluid collection. Ventricles and sulci are normal. Chanel-white differentiation is preserved. No abnormal enhancement is identified. The visualized portions of the orbits are unremarkable. There is minimal mucosal thickening in the ethmoid air cells. The visualized mastoid air cells are clear. No skull fracture or aggressive osseous lesion is seen. IMPRESSION: Unremarkable CT appearance of the brain. Electronically Signed By: Aaron Cotton M.D. On: 07/23/2016 08:27
[2016-07-23] MEDS: MORPHINE 2 MG/ML INJECTION IV PRN ×3 (08:30→21:19)
[2016-07-23] MEDS ORDERED: TRIAMTERENE PO SCH (09:00)
[2016-07-23] MEDS ORDERED: HCTZ 25 MG PO SCH (09:00)
[2016-07-23] MEDS ORDERED: VITAMINS (FOLGARD RX) TAB PO SCH (12:00)
[2016-07-23 12:59] VITALS: TEMP 97.6
--- NOTE | 2016-07-23 18:32 | GENMEDPROG ---
Subjective Note: Patient in bed responsive follows commands. Speech much more clear. Left- sided symptoms improved as well. Patient denies and difficulties speaking chewing or swallowing Notes Reviewed: Yes Events from last night noted and discussed with Clinical Staff Current Medication List: Reviewed Currently: Reports: Cough, GRANADO, Reflux Sx DVT Prophylaxis: Yes - Physical Examination Vital Signs and I&O: Last Vital Signs Temp 98.0 F 07/23/16 15:32 Pulse 93 07/23/16 16:00 Resp 17 07/23/16 15:32 BP 132/80 07/23/16 15:32 Pulse Ox 95 07/23/16 15:32 Oxygen Pulse Oxygen Saturation 95 O2 Device Room Air Oxygen Flow Rate Fraction of Inspired Oxygen ( FIO2) Intake & Output 07/20/16 07/21/16 07/22/16 07/23/16 23:59 23:59 23:59 23:59 Intake Total 10 954 1499 Output Total 800 1100 Balance 10 154 399 Patient's weight 131.451 kg 131.088 kg 131.678 kg General: Alert, Oriented x3, Cooperative, No acute distress HEENT: Normal, PERRLA, EOMI, Anicteric Sclera Neck: Non-tender, Limited range of motion Lymphatics: Normal Respiratory: Normal - CTA (Clear to auscultation bilaterally, no wheezing,rales or rhonchi. No use of accessory muscles), Diminished, Rhonchi Cardiovascular: Regular rate, Normal S1, Normal S2, Murmurs GI: Normal bowel sounds, Soft, Non tender, No hepatospenomegaly, No masses, Obese Extremities/Musculoskeletal: Edema, DJD Skin: Warm,Dry and Intact, No rashes, No breakdown, No significant lesion Neurological: Cranial nerves 3-12 NL, Other (Left-sided weakness noted) Psych/Mental Status: Anxious Lab/DI/Studies Reviewed: Patient Name: VINCENZO TAYLOR LOC: [facility] : 1975 AGE: 40 Order Date:07/23/16 Date of Service: Report # [id number] Ord Physician: Kellie Bear MD Exam # [id number] Emergency Physician: Terrie Zhu MD Exam(s): [id number] CT/CT HEAD WO/W CM CLINICAL DATA: Follow up stroke. Left-sided weakness involving the face, arm, and leg. Prior stroke. EXAM: CT HEAD WITHOUT AND WITH CONTRAST TECHNIQUE: Contiguous axial images were obtained from the base of the skull through the vertex without and with intravenous contrast CONTRAST: 100 mL Isovue 370 COMPARISON: 07/21/[address] FINDINGS: There is no evidence of acute cortical infarct, intracranial hemorrhage, mass, midline shift, or extra-axial fluid collection. Ventricles and sulci are normal. Chanel-white differentiation is preserved. No abnormal enhancement is identified. The visualized portions of the orbits are unremarkable. There is minimal mucosal thickening in the ethmoid air cells. The visualized mastoid air cells are clear. No skull fracture or aggressive osseous lesion is seen. IMPRESSION: Unremarkable CT appearance of the brain. Electronically Signed By: Aaron Cotton M.D. On: 07/23/2016 08:27 - Assessment (1) CVA - cerebrovascular accident due to cerebral artery occlusion Acute I63.50 - CEREB INFRC DUE TO UNSP OCCLS OR STENOS OF UNSP CEREB ARTERY Comment/Plan: Continue Eliquis. Repeated head CT unremarkable to compared to initial CT. Patient's symptoms most consistent with new CVA. Case discussed with Dr. French-continue Eliquis and physical therapy (2) History of atrial fibrillation Acute Z86.79 - PERSONAL HISTORY OF OTHER DISEASES OF THE CIRCULATORY SYSTEM Comment/Plan: Continue diltiazem and Eliquis. (3) Hyperlipidemia Acute E78.5 - HYPERLIPIDEMIA, UNSPECIFIED Qualifiers: Hyperlipidemia type: mixed hyperlipidemia Qualified Code(s): E78.2 - Mixed hyperlipidemia Comment/Plan: Continue statin once she is cleared for diet. Check fasting lipids in the morning. (4) HTN (hypertension) Acute I10 - ESSENTIAL (PRIMARY) HYPERTENSION Qualifiers: Hypertension type: essential hypertension Qualified Code(s): I10 - Essential (primary) hypertension Comment/Plan: Keep SBP above 140 (5) Neuropathy Acute G62.9 - POLYNEUROPATHY, UNSPECIFIED Case Care Discussed with: Patient, Consultants, Family, Nursing Staff, Bilingual Administrative Assistant Education/Counseling Given To: Patient Education/Counseling Given Regarding: Diagnosis, Treatment, Prognosis, Follow Up Total Time: 45 min . Critical Care: No Code: 46583 (12+)
[2016-07-23] MEDS: AMITRIPTYLINE 10 MG TAB PO SCH (21:09)
[2016-07-23] MEDS: LEVETIRACETAM 250 MG TAB PO SCH (21:09)
[2016-07-23] MEDS: ATORVASTATIN 20 MG TAB PO SCH (21:10)
[2016-07-24] MEDS: NS 1,000 ML IV SCH ×2 (00:07→10:06)
[2016-07-24] MEDS: ZOLPIDEM TARTRATE 5 MG TAB PO PRN (00:07)
[2016-07-24] MEDS: MORPHINE 2 MG/ML INJECTION IV PRN ×2 (04:50→10:31)
[2016-07-24] MEDS: CYCLOBENZAPRINE 10 MG TAB PO SCH (04:51)
[2016-07-24] MEDS: APIXABAN 5 MG TABLET PO SCH (08:37)
[2016-07-24] MEDS: LEVETIRACETAM 250 MG TAB PO SCH (08:37)
[2016-07-24] MEDS: LAMOTRIGINE 100 MG TAB PO SCH (08:38)
[2016-07-24] MEDS: DILTIAZEM 60 MG TAB PO SCH (08:38)
[2016-07-24] MEDS: HYDROCODONE 5 MG/ACETAMIN 325 MG TAB PO PRN (08:43)
[2016-07-24 10:03] VITALS: PULSE 103
--- NOTE | 2016-07-24 10:06 | PCM.DCS92 ---
- Final/Secondary Discharge Diagnosis (1) CVA - cerebrovascular accident due to cerebral artery occlusion Acute I63.50 - CEREB INFRC DUE TO UNSP OCCLS OR STENOS OF UNSP CEREB ARTERY Present on Admission: Yes Comment: Continue Eliquis. Repeated head CT unremarkable to compared to initial CT. Patient's symptoms most consistent with new CVA. Case discussed with Dr. French-continue Eliquis and physical therapy. Continue follow guard and statin and fish oil (2) History of atrial fibrillation Acute Z86.79 - PERSONAL HISTORY OF OTHER DISEASES OF THE CIRCULATORY SYSTEM Present on Admission: Yes Comment: Continue diltiazem and Eliquis. (3) Hyperlipidemia Acute E78.5 - HYPERLIPIDEMIA, UNSPECIFIED Present on Admission: Yes mixed hyperlipidemia E78.2 - Mixed hyperlipidemia Comment: Continue statin once she is cleared for diet. Check fasting lipids in the morning. (4) HTN (hypertension) Chronic I10 - ESSENTIAL (PRIMARY) HYPERTENSION Present on Admission: Yes essential hypertension I10 - Essential (primary) hypertension Comment: Keep SBP above 140 (5) Neuropathy Chronic G62.9 - POLYNEUROPATHY, UNSPECIFIED Present on Admission: Yes Discharge Disposition: Discharge w/ Home Health Discharge Condition: Improved Cognitive Discharge Status: Unimpaired Fuctional Discharge Status: Walker Assistance, Fall Risk Physician Follow up/Referrals: Darlin Vegas PA [Primary Care Provider] - One Week Del French MD [Staff Physician] - 3-4 Days Home Medications / New Prescriptions: New Cyclobenzaprine HCl [Flexeril] 5 mg PO TID #90 tab Zaleplon [Sonata] 10 mg PO HS #60 capsule Krill Oil/[place]-3/Dha/Epa [Fish Oil with Krill Softgel] 2 each PO TIDAC #120 capsule. Vitamins (Folgard Rx) [Folgard Rx-2.2] 1 cap PO DAILY #60 tab Continue Nitroglycerin [Nitroquick] 0.4 mg SL Q5MX3 PRN PRN Reason: Chest Pain Or Discomfort Hydralazine HCl 25 mg PO HS Amitriptyline HCl [Elavil] 10 mg PO HS Lamotrigine [Lamictal] 150 mg PO BID Atorvastatin Calcium [Lipitor] 20 mg PO QHS Hydrocodone Bit/Acetaminophen [[place] 10-325 Tablet] 0.5 tab PO BID PRN PRN Reason: Pain Levetiracetam [Keppra] 500 mg PO BID Apixaban [Eliquis] 5 mg PO BID Diltiazem HCl [Cardizem] 60 mg PO DAILY #90 tablet Butalb/Acetaminophen/Caffeine [Fioricet Tablet (50mg/325mg/40mg)] 1 - 2 tab PO Q4H PRN #90 tablet PRN Reason: Headache Discontinued Cyclobenzaprine HCl [Flexeril] 10 mg PO TID Zolpidem Tartrate [Ambien] 10 mg PO HS PRN PRN Reason: Sleep Or Insomnia Triamterene/Hydrochlorothiazid [Triamterene-Hctz 37.5-25 mg Tb] 1 tab PO DAILY O2 Device: Room Air Diet at Discharge: Heart Healthy, Low Salt, High Fiber Activity: As Tolerated, Limited Call Office For: Fever over 101 F Discontinue use of:: Alcohol, All Illegal Substances, All Types of Tobacco - DC Summary Notes Hospital Course Note:: Discharge summary on patient named VINCENZO TAYLOR admitted to [facility] on 07/21/16 by Sudeep Batista MD. Date of discharg. Patient was initially brought to emergency room on July 21 for evaluation of evaluation of sudden onset of slurring of the speech left side is numbness weakness and tingling. Please refer to the admission for further details. Of note is that patient has been on chronic anticoagulation with Eliquis due to history of previous CVA and chronic atrial fibrillation. Patient also reported episodes of headaches but denies any nausea vomiting blurring or double vision. ED workup was undertaken initial head CT was negative for any acute change. Patient is admitted to monitor bed treatment with liquids was continued. Due to presence of pacemaker MRI was not feasible. She was seen by speech occupational and physical therapy and overall her symptoms have improved and by the time of discharge her neurological condition has returned to prehospitalization baseline. Patient was seen consultation by neurologist Dr. French and recommendation was made to continue treatment with Eliquis and statin anti continue physical and occupational therapy. Of note is that patient had anaphylactic reaction to aspirin in the past. Repeated head CT 48 hours into admission showed no acute CVA and no change to initial head CT. Carotid Dopplers showed no significant carotid stenosis. Outpatient regimen for chronic medical conditions was continued and during hospital stay patient has remained hemodynamically stable. Patient required adjustment her BP meds to keep systolic blood pressure on the higher side. Hyper coagulopathy panel was obtained on this admission and results pending at the time of the dictation. It was felt that by July 24 patient has reached maximum benefit of inpatient therapy and in clinically improved condition she has been discharged home to care of the family and her PCP. Total Time: 40 min . Code: 06825 (>30min.) - Physical Exam Vital Signs: Last Vital Signs Temp 97.8 F 07/24/16 07:46 Pulse 103 07/24/16 09:55 Resp 20 07/24/16 07:46 BP 124/69 07/24/16 07:46 Pulse Ox 93 07/24/16 07:46 Oxygen Pulse Oxygen Saturation 93 O2 Device Room Air Oxygen Flow Rate Fraction of Inspired Oxygen ( FIO2) Constitutional: Alert, Well nourished Oriented to: Time, Person, Place - HEENT Head: Normal Eye: Normal Oropharynx: Normal ENT EAC: Normal TMJ: Normal Nose: No Symptoms Reported - Respiratory/Cardiovascular Respiratory: Normal - CTA (Clear to auscultation bilaterally, no wheezing,rales or rhonchi. No use of accessory muscles), Diminished, Rhonchi Cardiovascular: Normal, Systolic murmur - GI Auscultation: Normal Palpation: Normal (soft, non distended and nontender) Tenderness: Non tender Rectal Exam: Deferred - Exam Deferred: Yes - Musculoskeletal Back: Normal Extremities: Normal (normal tone, no cyanosis or edema) - Integumentary Skin: Normal, Warm, Dry Lymphatics: Normal - Neurologic Memory Impaired: Normal Motor Function: Abnormal Cranial Nerve: negative: 12 Cerebellar: Ataxia Mood Description: Normal, Anxious Thought: Coherent Perception: Normal - Other Exam Other Exam Findings: Allergies aspirin Allergy (Verified 07/07/16 09:40) Anaphylaxis* cephalexin monohydrate [From Keflex] Allergy (Verified 07/06/16 14:19) Anaphylaxis* ibuprofen Allergy (Verified 07/06/16 14:19) Anaphylaxis* naproxen sodium [From Aleve] Allergy (Verified 07/06/16 14:19) Anaphylaxis* nitrofurantoin [From Macrobid] Allergy (Verified 07/06/16 14:19) Anaphylaxis* nitrofurantoin macrocrystalline [From Macrobid] Allergy (Verified 07/06/16 14:19 ) Anaphylaxis* Discharge Home Medication List Amitriptyline HCl [Elavil] 10 mg PO HS 10/18/15 [History Confirmed 07/21/16] Hydralazine HCl 25 mg PO HS 10/18/15 [History Confirmed 07/21/16] Nitroglycerin [Nitroquick] 0.4 mg SL Q5MX3 PRN 10/18/15 [History Confirmed 07/21] Lamotrigine [Lamictal] 150 mg PO BID 03/06/16 [History Confirmed 07/21/16] Atorvastatin Calcium [Lipitor] 20 mg PO QHS 05/13/16 [History Confirmed 07/21/16 ] Hydrocodone Bit/Acetaminophen [[place] 10-325 Tablet] 0.5 tab PO BID PRN 05/13/16 [History Confirmed 07/21/16] Apixaban [Eliquis] 5 mg PO BID 07/21/16 [History Confirmed 07/21/16] Levetiracetam [Keppra] 500 mg PO BID 07/21/16 [History Confirmed 07/21/16] Butalb/Acetaminophen/Caffeine [Fioricet Tablet (50mg/325mg/40mg)] 1 - 2 tab PO Q4H PRN #90 tablet 07/24/16 [Rx] Cyclobenzaprine HCl [Flexeril] 5 mg PO TID #90 tab 07/24/16 [Rx] Diltiazem HCl [Cardizem] 60 mg PO DAILY #90 tablet 07/24/16 [Rx] Zaleplon [Sonata] 10 mg PO HS #60 capsule 07/24/16 [Rx] New Discharge Medications (Rx) Butalb/Acetaminophen/Caffeine [Fioricet Tablet (50mg/325mg/40mg)] 1 - 2 tab PO Q4H PRN #90 tablet 07/24/16 [Rx] Cyclobenzaprine HCl [Flexeril] 5 mg PO TID #90 tab 07/24/16 [Rx] Diltiazem HCl [Cardizem] 60 mg PO DAILY #90 tablet 07/24/16 [Rx] Zaleplon [Sonata] 10 mg PO HS #60 capsule 07/24/16 [Rx] Home Medications Amitriptyline HCl [Elavil] 10 mg PO HS 10/18/15 Hydralazine HCl 25 mg PO HS 10/18/15 Nitroglycerin [Nitroquick] 0.4 mg SL Q5MX3 PRN 10/18/15 Lamotrigine [Lamictal] 150 mg PO BID 03/06/16 Atorvastatin Calcium [Lipitor] 20 mg PO QHS 05/13/16 Hydrocodone Bit/Acetaminophen [[place] 10-325 Tablet] 0.5 tab PO BID PRN 05/13/16 Apixaban [Eliquis] 5 mg PO BID 07/21/16 Levetiracetam [Keppra] 500 mg PO BID 07/21/16 Butalb/Acetaminophen/Caffeine [Fioricet Tablet (50mg/325mg/40mg)] 1 - 2 tab PO Q4H PRN #90 tablet 07/24/16 Cyclobenzaprine HCl [Flexeril] 5 mg PO TID #90 tab 07/24/16 Diltiazem HCl [Cardizem] 60 mg PO DAILY #90 tablet 07/24/16 Zaleplon [Sonata] 10 mg PO HS #60 capsule 07/24/16 Last Vital Signs Temp 97.8 F 07/24/16 07:46 Pulse 103 07/24/16 09:55 Resp 20 07/24/16 07:46 BP 124/69 07/24/16 07:46 Pulse Ox 93 07/24/16 07:46 07/22/16 20:50 07/21/16 16:50 Patient Name: VINCENZO TAYLOR LOC: [facility] : 1975 AGE: 40 Order Date:07/23/16 Date of Service: Report # [id number] Ord Physician: Kellie Bear MD Exam # [id number] Emergency Physician: Terrie Zhu MD Exam(s): [id number] CT/CT HEAD WO/W CM CLINICAL DATA: Follow up stroke. Left-sided weakness involving the face, arm, and leg. Prior stroke. EXAM: CT HEAD WITHOUT AND WITH CONTRAST TECHNIQUE: Contiguous axial images were obtained from the base of the skull through the vertex without and with intravenous contrast CONTRAST: 100 mL Isovue 370 COMPARISON: 07/21/[address] FINDINGS: There is no evidence of acute cortical infarct, intracranial hemorrhage, mass, midline shift, or extra-axial fluid collection. Ventricles and sulci are normal. Chanel-white differentiation is preserved. No abnormal enhancement is identified. The visualized portions of the orbits are unremarkable. There is minimal mucosal thickening in the ethmoid air cells. The visualized mastoid air cells are clear. No skull fracture or aggressive osseous lesion is seen. IMPRESSION: Unremarkable CT appearance of the brain. Electronically Signed By: Aaron Cotton M.D. On: 07/23/2016 08:27
[2016-07-24 10:41] VITALS: BP 131/66; TEMP 97.7
[2016-07-24] MEDS ORDERED: HEPARIN 500 UNITS/5 ML (100 UNITS/ML) SYR FLUSH ONE (13:00)
[2016-07-27 12:37] LABS: DILUTE RUSSELL'S VIPER VENOM 48.4 sec (0.0-44.0)
[2016-07-27 13:24] LABS: INTERPRETATION Comment: (.); PROTEIN S(FUNCTIONAL) 121 % (63-140)
== END 2016-07-24 12:35 | disposition home or self-care (01) | DRG 65 ==
LOC: ED 16:03 → EDINP 18:31 → PCU 21:29
PROVIDERS: ADMIT Internal Medicine; ATTEND Internal Medicine
DX: I63.50 Cerebral infarction due to unspecified occlusion or stenosis of unspecified cerebral artery (principal); G81.94 Hemiplegia, unspecified affecting left nondominant side; I50.9 Heart failure, unspecified; I10 Essential (primary) hypertension; G62.9 Polyneuropathy, unspecified; I48.2 Chronic atrial fibrillation; R29.810 Facial weakness; R29.707 NIHSS score 7; E78.2 Mixed hyperlipidemia; Z86.73 Personal history of transient ischemic attack (TIA), and cerebral infarction without residual deficits; Z95.0 Presence of cardiac pacemaker; Z79.02 Long term (current) use of antithrombotics/antiplatelets; I25.10 Atherosclerotic heart disease of native coronary artery without angina pectoris; I25.2 Old myocardial infarction; I51.9 Heart disease, unspecified; M19.90 Unspecified osteoarthritis, unspecified site; Z85.43 Personal history of malignant neoplasm of ovary; F41.9 Anxiety disorder, unspecified; Z88.8 Allergy status to other drugs, medicaments and biological substances; Z79.899 Other long term (current) drug therapy; G47.00 Insomnia, unspecified; E78.5 Hyperlipidemia, unspecified; Z23 Encounter for immunization
CPT/HCPCS: 36415; 70450; 70470; 71010; 80053; 80061; 81001; 81240; 81241; 83090; 84443; 84484; 85025; 85027; 85300; 85303; 85306; 85610; 85613; 85730; 85732; 90471; 90656; 93005; 93306; 93880; 96374; 96375; 97161; 97165; 99284; J1642; J1953; J2270; J2405; J3490